=== PATIENT | male | born 1955 | race Caucasian/White ===

== ENCOUNTER 2020-03-31 08:39 | Emergency (ER) | payer MEDICARE ==
--- NOTE | 2020-03-31 09:45 | RADIOLOGY REPORT (SQ) ---
EXAM DESCRIPTION: CHEST SINGLE VIEW IMAGES COMPLETED DATE/TIME: 03/31/2020 9:35 am REASON FOR STUDY: SOB COMPARISON: None. EXAM PARAMETERS: NUMBER OF VIEWS: One view. TECHNIQUE: An AP view of the chest was obtained. RADIATION DOSE: NA LIMITATIONS: None. FINDINGS: LUNGS AND PLEURA: Patchy parenchymal opacities in the inferior aspect of the left lung. T he left lateral costophrenic sulcus is blunted. There is no pneumothorax. MEDIASTINUM AND HILAR STRUCTURES: No mediastinal or hilar contour abnormality. HEART AND VASCULAR STRUCTURES: The cardiac silhouette is enlarged. BONES: No acute findings. HARDWARE: Sternotomy wires. OTHER: No other finding. IMPRESSION: Patchy parenchymal opacities in the inferior aspect of the left lung associated with a s mall pleural effusion. Clinical correlation to exclude a pneumonia is recommended. TECHNICAL DOCUMENTATION: JOB ID: [id number] 2010 [employer]- All Rights Reserved Reading location - IP/workstation name: [email or web address]
--- NOTE | 2020-03-31 10:49 | RADIOLOGY REPORT (SQ) ---
EXAM DESCRIPTION: CT CHEST WITHOUT IMAGES COMPLETED DATE/TIME: 03/31/2020 10:17 am REASON FOR STUDY: cough/abnormal xray COMPARISON: AP view of the chest from 03/31/2020. TECHNIQUE: CT scan performed of the chest without intravenous contrast. Images reviewed with lung, soft tissue and bone windows. Reconstructed coronal and sagittal MPR images reviewed. All images st ored on PACS. All CT scanners at this facility use dose modulation, iterative reconstruction, and/or weight based d osing when appropriate to reduce radiation dose to as low as reasonably achievable (ALARA). [facility]: Dose Right [facility]: CareDose [facility]: Dose Right [facility]: Teradose 4D [facility]: [employer] RADIATION DOSE: CT Rad equipment meets quality standard of care and radiation dose reduction techniq ues were employed. CTDIvol: 9.1 mGy. DLP: 401 mGy-cm. LIMITATIONS: No technical limitations. FINDINGS: LUNGS AND PLEURA: The trachea and main bronchi are patent. There are patchy geographic ar eas of ground-glass attenuation scattered throughout both lungs in a predominantly peripheral distrib ution. There is no sizable pleural effusion or pneumothorax. HILAR AND MEDIASTINAL STRUCTURES: Evaluation of the betsy for adenopathy is limited by the absence of intravenous contrast. There are scattered nonenlarged based on size criteria right lower paratrachea l and AP window lymph nodes that measure up to 7 mm in short axis diameter. HEART AND VASCULAR STRUCTURES: Status post median sternotomy. There are postoperative findings in th e aortic annulus and ascending aorta that are suggestive of a prior aortic dissection repair. There is an age-indeterminate (likely chronic) descending thoracic and abdominal aortic dissection. The le ft ventricle is enlarged and there is [id number] atherosclerotic calcification of the coronary arteries. There is no pericardial effusion. UPPER ABDOMEN: Paraesophageal hernia and cholecystectomy clips. THYROID AND OTHER SOFT TISSUES: No adenopathy or mass. BONES: Dextroconvex scoliotic curvature of the thoracolumbar spine and chronic fractures of several l eft-sided ribs. HARDWARE: Sternotomy wires. OTHER: No other findings. IMPRESSION: 1. Patchy geographic areas of ground-glass attenuation scattered throughout both lungs i n a predominantly peripheral distribution concerning for multifocal pneumonia (including atypical inf ections such as COVID-19). 2. Status post median sternotomy. There are postoperative findings in the aortic annulus and ascend ing aorta that are suggestive of a prior aortic dissection repair. There is an age-indeterminate (li love chronic) descending thoracic and abdominal aortic dissection. TECHNICAL DOCUMENTATION: JOB ID: [id number] Quality ID # [id number]: Final reports with documentation of one or more dose reduction techniques (e.g., Au tomated exposure control, adjustment of the mA and/or kV according to patient size, use of iterative reconstruction technique) 2010 [employer]- All Rights Reserved Reading location - IP/workstation name: [id number]
[2020-03-31 11:11] LABS: ABSOLUTE LYMPHOCYTES (AUTO) 0.8 10^3/uL (0.5-4.7); ABSOLUTE MONOCYTES (AUTO) 0.4 10^3/uL (0.1-1.4); ABSOLUTE NEUT (AUTO) 3.6 10^3/uL (1.7-8.2); BASOPHILS % (AUTO) 0.4 % (0-2); HEMATOCRIT 43.5 % (37.9-51.0); HEMOGLOBIN 14.6 g/dL (13.5-17.0); LYMPHOCYTES % (AUTO) 16.2 % (13-45); MEAN CORPUSCULAR HEMOGLOBIN 29.3 pg (27.0-33.4); MEAN CORPUSCULAR HGB CONC 33.6 g/dL (32.0-36.0); MEAN CORPUSCULAR VOLUME 87 fl (80-97); MONOCYTES % (AUTO) 8.7 % (3-13); PLATELET COUNT 174 10^3/uL (150-450); RED CELL DISTRIBUTION WIDTH 13.8 % (11.5-14.0); SEGMENTED NEUTROPHILS % (AUTO) 74.7 % (42-78); TOTAL CELLS COUNTED % (AUTO) 100 %; WHITE BLOOD COUNT 4.9 10^3/uL (4.0-10.5)
[2020-03-31 11:33] LABS: ALBUMIN 3.4 g/dL (3.5-5.0); ALKALINE PHOSPHATASE 82 U/L (38-126); ANION GAP 9 (5-19); ASPARTATE AMINO TRANSFERASE 69 U/L (17-59); BILIRUBIN,DIRECT 0.3 mg/dL (0.0-0.4); BLOOD UREA NITROGEN 21 mg/dL (7-20); CALCIUM 8.3 mg/dL (8.4-10.2); CARBON DIOXIDE 26 mmol/L (22-30); CHLORIDE 101 mmol/L (98-107); GLUCOSE 119 mg/dL (75-110); POTASSIUM 4.4 mmol/L (3.6-5.0); TOTAL PROTEIN 6.9 g/dL (6.3-8.2)
[2020-03-31 12:06] LABS: C-REACTIVE PROTEIN 147.8 mg/L (<10.0)
[2020-03-31 12:43] LABS: D-DIMER 0.6 ug/mL (0.00-0.50)
--- NOTE | 2020-03-31 14:01 | ER Document Report ---
ED General - General Chief Complaint: Cough Stated Complaint: COUGH, SORE THROAT, Time Seen by Provider: 03/31/20 09:11 Mode of Arrival: Ambulatory Information source: Patient - HPI Notes: Patient presents with shortness of breath. Patient states he has had the shortness of breath approximate 3 to 4 days. He states it has progressively been getting worse. He denies any known exposure to the Covid virus. He has had weakness with some chills. No known fevers. He states he has had a cough that is progressively been getting worse as well. The shortness of breath is worse with exertion and better with rest. Patient denies any pain. No vomiting or diarrhea. - Related Data Allergies/Adverse Reactions: morphine [Morphine] Allergy (Verified 06/08/11 22:45) Home Medications: rosuvastatin, warfarin, atenolol, amlodipine, benazepril, vit d2 Past Medical History - General Information source: Patient - Social History Smoking Status: Never Smoker Chew tobacco use (# tins/day): No Frequency of alcohol use: None Drug Abuse: None Family History: Reviewed & Not Pertinent - Past Medical History Cardiac Medical History: Reports: Hx Hypercholesterolemia, Hx Hypertension Past Surgical History: Reports: Hx Cholecystectomy, Hx Tonsillectomy - Immunizations Hx Diphtheria, Pertussis, Tetanus Vaccination: No Review of Systems - Review of Systems Constitutional: Chills, Malaise Cardiovascular: denies: Chest pain, Palpitations Respiratory: Cough, Short of breath -: Yes All other systems reviewed and negative Physical Exam - Vital signs Vitals: Temp Pulse Resp BP Pulse Ox 98.1 F 58 L 20 109/61 94 03/31/20 08:46 03/31/20 08:46 03/31/20 08:46 03/31/20 08:46 03/31/20 08:46 Interpretation: Normal - General General appearance: Appears well, Alert - HEENT Head: Normocephalic, Atraumatic Eyes: Normal Pupils: PERRL - Respiratory Respiratory status: No respiratory distress Chest status: Nontender Breath sounds: Rhonchi Chest palpation: Normal - Cardiovascular Rhythm: Regular Heart sounds: Normal auscultation Murmur: No - Abdominal Inspection: Normal Distension: No distension Bowel sounds: Normal Tenderness: Nontender Organomegaly: No organomegaly - Back Back: Normal, Nontender - Extremities General upper extremity: Normal inspection, Nontender, Normal color, Normal ROM, Normal temperature General lower extremity: Normal inspection, Nontender, Normal color, Normal ROM, Normal temperature, Normal weight bearing. No: Isaiah's sign - Neurological Neuro grossly intact: Yes Cognition: Normal Orientation: AAOx4 Sutton Coma Scale Eye Opening: Spontaneous Sutton Coma Scale Verbal: Oriented Sue Coma Scale Motor: Obeys Commands Sue Coma Scale Total: 15 Speech: Normal Motor strength normal: LUE, RUE, LLE, RLE Sensory: Normal - Psychological Associated symptoms: Normal affect, Normal mood - Skin Skin Temperature: Warm Skin Moisture: Dry Skin Color: Normal Course - Re-evaluation Re-evalutation: 03/31/20 13:57 Patient presents with respiratory symptoms. Patient's CT scan is consistent wi th Covid. Admission was obviously considered for the patient. However he does not have any significant morbidities. He is not a smoker. His vital signs are normal. When he ambulated his oxygen saturation stayed essentially in the low 90s and he states that he did not feel short of breath when he was ambulating. He did had one brief moment where his sat went to 89 however this is extremely brief and right when he got up to go to the door. Patient states that he prefers to be discharged rather than be admitted to the hospital. He has no fever or white count here. At this time he would not meet criteria for inpatient use of medications such as steroids or antivirals. Therefore it seems most prudent to discharge the patient home with outpatient medications. 03/31/20 13:58 the patient was evaluated during a global COVID-19 pandemic and that diagnosis was suspected/considered upon their initial presentation. Their evaluation, treatment and testing was consistent with current guidelines for patients who present with complaints or symptoms and may be related to COVID-19. - Vital Signs Vital signs: Temp Pulse Resp BP Pulse Ox 98.1 F 58 L 20 109/61 94 03/31/20 08:46 03/31/20 08:46 03/31/20 08:46 03/31/20 08:46 03/31/20 08:46 - Laboratory Results Result Diagrams: 03/31/20 10:45 03/31/20 10:45 Laboratory Results Interpreted: 03/31/20 03/31/20 03/31/20 10:45 10:45 12:00 Fibrinogen 828 H D-Dimer 0.60 H Sodium 136.1 L BUN 21 H Glucose 119 H Calcium 8.3 L Ferritin 572.00 H AST 69 H Lactate Dehydrogenase 424 H C-Reactive Protein 147.8 H Albumin 3.4 L Critical Laboratory Results Reviewed: No Critical Results - Radiology Results Critical Radiology Results Reviewed: Yes Attending or Supervising Physician who Reviewed Radiology: BERTO GARCIA Discharge - Discharge Clinical Impression: Pneumonia due to COVID-19 virus Condition: Stable Disposition: HOME, SELF-CARE Instructions: COVID-19 Guidance for Persons Under Investigation Additional Instructions: Your CT scan was consistent with a COVID-19 infection. Please quarantine yourself for the next 10 days. If you develop fevers, worsening shortness of breath or any other concerns please return immediately to a medical provider such as the emergency department for evaluation. Please follow-up with your primary in 10 to 14 days. Prescriptions: Benzonatate [Tessalon Perles 100 mg Capsule] 100 mg PO Q8HP PRN #40 capsule PRN Reason: Prednisone [Deltasone 20 mg Tablet] 60 mg PO DAILY 5 Days #15 tablet Azithromycin [Zithromax 250 mg Tablet] 250 mg PO ASDIR PRN #6 tablet PRN Reason: Forms: Return to Work
[2020-03-31 14:17] VITALS: BP 126/63
[2020-03-31] MEDS ORDERED: ACETAMINOPHEN 325 MG TABLET PO ONE (14:17)
== END 2020-03-31 14:29 | disposition home or self-care (01) ==
LOC: ER 08:39
DX: U07.1 COVID-19 (principal); J12.89 Other viral pneumonia; I71.01 Dissection of thoracic aorta; I71.02 Dissection of abdominal aorta; R06.02 Shortness of breath; R53.1 Weakness; R68.83 Chills (without fever); R05 Cough; E78.00 Pure hypercholesterolemia, unspecified; I10 Essential (primary) hypertension; R53.81 Other malaise; Z79.899 Other long term (current) drug therapy; Z79.01 Long term (current) use of anticoagulants; Z88.6 Allergy status to analgesic agent; Z88.5 Allergy status to narcotic agent
CPT/HCPCS: 99285; 36415; 87070; 87880; 82728; 83615; 85025; 85384; 87635; 86140; 80053; 85379; 71045; 71250; C9803